=== PATIENT | female | born 1950 | race Caucasian/White ===

== ENCOUNTER → 2017-01-25 | Outpatient (CLI) | payer MEDICARE ==
[~2017-01-25] MED LIST: ACTOS30 MG PO; ASPIR-LOW81 MG PO; CYMBALTA 60MG60 MG PO; DOCUSATE SODIU100 MG PO; FORTAMET500 MG PO; HCTZ 25MG25 MG PO; LISINOPRIL20 MG PO; MVI; TRAZODO50 MG PO; TYLENOL 500MG500 MG PO; VITAMIN C500 MG PO
== END ==
LOC: COL.RAD 09:19
DX: N18.9 Chronic kidney disease, unspecified (principal); Z96.0 Presence of urogenital implants

== ENCOUNTER → 2017-04-20 | Outpatient (CLI) | payer MEDICARE | LOC: WCC 04-19 09:09 | DX: L97.529 Non-pressure chronic ulcer of other part of left foot with unspecified severity (principal); Z89.412 Acquired absence of left great toe | CPT/HCPCS: 13919; G0463 ==

== ENCOUNTER → 2017-04-26 | Outpatient (CLI) | payer MEDICARE | LOC: WCC 09:44 | DX: E11.621 Type 2 diabetes mellitus with foot ulcer (principal); L97.524 Non-pressure chronic ulcer of other part of left foot with necrosis of bone | CPT/HCPCS: 27517; A6207 ==

== ENCOUNTER 2017-05-18 09:16 | Day surgery (SDC) | payer MEDICARE ==
[~2017-05-18] VITALS: Ht 160 cm; Wt 86.4 kg
[~2017-05-18 09:16] MED LIST changes: -FORTAMET500 MG PO; +GLUCOPHAGE1000 MG PO; -LISINOPRIL20 MG PO; +PRINIVIL5 MG PO
[2017-05-18] MEDS ORDERED: TRADJENTA5 MG PO (10:09)
[2017-05-18] MEDS ORDERED: NORVASC 10MG10 MG PO (10:11)
[2017-05-18] MEDS ORDERED: ZOLOFT 50MG50 MG PO (10:11)
[2017-05-18] MEDS ORDERED: PRAVACHOL 20MG20 MG PO (10:13)
[2017-05-18] MEDS ORDERED: LEVEMIR FLEX100 U/ML SQ (10:14)
[2017-05-18] MEDS ORDERED: MULTIVITAMIN FO1 CAP PO (10:16)
[2017-05-18 11:03] VITALS: BP 136/70; PULSE 74; TEMP 97.5
[2017-05-18 12:55] VITALS: BP 130/71; PULSE 81; TEMP 97.4
[2017-05-18 13:10] VITALS: BP 145/77; PULSE 79
[2017-05-18 13:25] VITALS: BP 159/81; PULSE 84
[2017-05-18 13:40] VITALS: BP 150/65; PULSE 78
[2017-05-18 13:55] VITALS: BP 147/72; PULSE 80
== END 2017-05-18 14:15 | disposition home or self-care (01) ==
LOC: SDCO 09:16
DX: M20.42 Other hammer toe(s) (acquired), left foot (principal); E11.621 Type 2 diabetes mellitus with foot ulcer; L97.529 Non-pressure chronic ulcer of other part of left foot with unspecified severity; M19.90 Unspecified osteoarthritis, unspecified site; F32.9 Major depressive disorder, single episode, unspecified; Z87.891 Personal history of nicotine dependence; Z79.84 Long term (current) use of oral hypoglycemic drugs; I10 Essential (primary) hypertension
CPT/HCPCS: J0690; J2250; J2405; J2704; J7030

== ENCOUNTER 2022-02-19 14:15 | Outpatient (RCR) | payer MEDICARE, MEDICAID ==
[~2022-02-19 14:15] MED LIST changes: +LEVEMIR FLEX100 U/ML SQ; +MULTIVITAMIN FO1 CAP PO; +NORVASC 10MG10 MG PO; +PRAVACHOL 20MG20 MG PO; +TRADJENTA5 MG PO; +ZOLOFT 50MG50 MG PO
== END 2022-03-01 | disposition home or self-care (01) ==
LOC: WSOT
DX: R20.0 Anesthesia of skin (principal)

== ENCOUNTER 2022-03-27 10:30 | Outpatient (RCR) | payer MEDICARE, MEDICAID | END 2022-04-01 | disposition home or self-care (01) | LOC: WSPT | DX: R20.0 Anesthesia of skin (principal); E11.9 Type 2 diabetes mellitus without complications ==

== ENCOUNTER → 2022-04-01 | Outpatient (CLI) | payer MEDICARE | LOC: MC.RAD 13:45 | DX: Z12.31 Encounter for screening mammogram for malignant neoplasm of breast (principal) ==

== ENCOUNTER 2022-04-30 13:18 | Emergency (ER) | payer MEDICARE, MEDICAID ==
[~2022-04-30] VITALS: Ht 154.9 cm; Wt 83.2 kg
[2022-04-30 14:36] LABS: BASO % 0.3 % (0.0-2.0); EOS # 0.1 K/mm3 (0.0-0.7); EOS % 1.2 % (0.0-4.0); GRAN # 9.7 K/mm3 (1.4-6.5); GRAN % 81.8 % (42.2-75.2); HEMOGLOBIN 10.5 g/dl (12.5-16.0); LYMPH % 8.5 % (20.0-51.0); MEAN CELL VOLUME 82 fl (80.0-100.0); MEAN CORPUSCULAR HEMOGLOBIN 27 pg (27-31); MEAN CORPUSCULAR HGB CONC 33 g/dl (33.0-37.0); MEAN PLATELET VOLUME 9.4 fl (7.4-10.4); MONO # 0.9 K/mm3 (0.1-0.6); MONO % 7.6 % (1.7-9.3); PLATELET COUNT 282 K/mm3 (130-400); RED BLOOD COUNT 3.85 M/mm3 (4.10-5.30); REDCELL DISTRIBUTION WIDTH-CV 13.7 % (11.5-14.5)
[2022-04-30 14:38] LABS: HEMATOCRIT 31.6 % (37.0-47.0)
[2022-04-30 14:55] LABS: ALBUMIN 2.8 gm/dL (3.4-4.8); C-REACTIVE PROTEIN 10.27 mg/dL (0.00-0.50); CALCIUM 8.8 mg/dL (8.4-10.2); CREATININE, serum 1.27 mg/dL (0.57-1.11); PHOSPHOROUS 4.3 mg/dL (2.3-4.7); POTASSIUM 4.2 mmol/L (3.5-4.5)
[2022-04-30 15:16] LABS: ERYTHROCYTE SEDIMENTATION RATE 74 mm/hr (0-30)
[2022-04-30] MEDS ORDERED: BACTRIM DS 8001 TAB PO (15:52)
[2022-04-30 16:15] VITALS: BP 125/69; PULSE 79; TEMP 98.9
== END 2022-04-30 16:27 | disposition home or self-care (01) ==
LOC: COL.ER 13:18
PROVIDERS: Emergency Medicine
DX: E11.69 Type 2 diabetes mellitus with other specified complication (principal); E11.52 Type 2 diabetes mellitus with diabetic peripheral angiopathy with gangrene; L08.9 Local infection of the skin and subcutaneous tissue, unspecified; I96 Gangrene, not elsewhere classified

== ENCOUNTER 2022-05-20 11:54 | Inpatient (IN) | payer MEDICARE, MEDICAID ==
[~2022-05-20] VITALS: Ht 154.9 cm; Wt 181.0 kg
[~2022-05-20 11:54] MED LIST changes: +BACTRIM DS 8001 TAB PO
[2022-05-26] VITALS (10 sets, daily range): BP systolic 116–158; BP diastolic 48–86; PULSE 72–92; TEMP 97–98.4
[2022-05-26] MEDS ORDERED: ASPIRIN 81M81 MG/TA2 PO (06:53)
[2022-05-26] MEDS ORDERED: PRINIVIL5 MG PO (06:54)
[2022-05-26] MEDS ORDERED: HCTZ 25MG TAB25 MG PO (06:54)
[2022-05-26] MEDS ORDERED: MULTIVITAMIN FO1 CAP PO (06:56)
[2022-05-26] MEDS ORDERED: PRAVACHOL 20MG20 MG PO (06:57)
[2022-05-26] MEDS ORDERED: ZOLOFT 50MG50 MG PO (06:58)
[2022-05-26] MEDS ORDERED: NORVASC 10MG10 MG PO (06:58)
[2022-05-26] MEDS ORDERED: TRADJENTA5 MG PO (06:59)
[2022-05-26] MEDS ORDERED: GLUCOPHAGE1000 MG PO (06:59)
[2022-05-26] MEDS ORDERED: LEVEMIR FLEX100 U/ML (07:01)
--- NOTE | 2022-05-26 07:34 | NUR ---
0734 5 UNITS REGULAR INSULIN ORDERED BY J[employer] FIXTURE BUILDER. TAKEN TO OR BY Zain UMANZOR RN.
--- NOTE | 2022-05-26 10:20 | NUR ---
1020 ORDER RECEIVED FROM Barbara ORANTES PER KIMBERLY TO DISCONTINUE PO BACTRIM
--- NOTE | 2022-05-26 10:49 | NUR ---
PT TO ROOM 332 PER BED WITH REPORT FROM VEENA [address] SUPERVISOR !@[email or web address]. PT IS DROWSEY BUT AROUSES TO VERBAL. LUNGS CTA, BOWEL SOUNDS PRESENT. IMMOBILIZER INPLACE TO RIGHT LOWER EXT S/P BKA BY DR. HICKMAN THIS AM. IV TO RFA, WATER PROVIDED PER PT REQUEST. CONSULTED HOSPITALIST FOR MEDICAL MANAGEMENT.
[2022-05-26 16:18] LABS: MEAN CELL VOLUME 79 fl (80.0-100.0); MEAN CORPUSCULAR HGB CONC 32 g/dl (33.0-37.0); MEAN PLATELET VOLUME 8.8 fl (7.4-10.4); PLATELET COUNT 383 K/mm3 (130-400); RED BLOOD COUNT 3.31 M/mm3 (4.10-5.30); REDCELL DISTRIBUTION WIDTH-CV 14.9 % (11.5-14.5)
[2022-05-26 16:21] LABS: HEMATOCRIT 26.2 % (37.0-47.0); HEMOGLOBIN 8.5 g/dl (12.5-16.0); MEAN CORPUSCULAR HEMOGLOBIN 26 pg (27-31)
[2022-05-26 16:40] LABS: CALCIUM 8.2 mg/dL (8.4-10.2); CREATININE, serum 1.07 mg/dL (0.57-1.11); POTASSIUM 4.9 mmol/L (3.5-4.5)
[2022-05-26 16:51] LABS: ANISOCYTOSIS 1+; BAND 1 % (0-10); LYMPHOCYTE 3 % (20.0-51.0); PLATELET ESTIMATE NORMAL (NORMAL)
[2022-05-26 16:52] LABS: MICROCYTOSIS 1+
[2022-05-26 16:53] LABS: NEUTROPHILS 96 % (42.0-75.2)
[2022-05-27] VITALS (7 sets, daily range): BP systolic 103–130; BP diastolic 42–63; PULSE 67–85; TEMP 97.4–98.2
[2022-05-27 06:52] LABS: BASO % 0.3 % (0.0-2.0); EOS % 0.2 % (0.0-4.0); GRAN # 9.1 K/mm3 (1.4-6.5); GRAN % 78.4 % (42.2-75.2); LYMPH # 1.5 K/mm3 (1.2-3.4); LYMPH % 13.4 % (20.0-51.0); MEAN CELL VOLUME 80 fl (80.0-100.0); MEAN CORPUSCULAR HGB CONC 32 g/dl (33.0-37.0); MEAN PLATELET VOLUME 8.8 fl (7.4-10.4); MONO # 0.8 K/mm3 (0.1-0.6); MONO % 6.9 % (1.7-9.3); PLATELET COUNT 414 K/mm3 (130-400); RED BLOOD COUNT 3.15 M/mm3 (4.10-5.30); REDCELL DISTRIBUTION WIDTH-CV 14.7 % (11.5-14.5)
[2022-05-27 07:07] LABS: HEMATOCRIT 25.3 % (37.0-47.0); MEAN CORPUSCULAR HEMOGLOBIN 25 pg (27-31)
[2022-05-27 07:22] LABS: CALCIUM 7.6 mg/dL (8.4-10.2); CREATININE, serum 0.86 mg/dL (0.57-1.11); POTASSIUM 3.8 mmol/L (3.5-4.5)
--- NOTE | 2022-05-27 08:45 | NUR ---
Pt doing well this morning, some pain complaints, but pt states isn't too bad. Pt is aware that therapy will be working with her today on mobility. JILLIAN SOMMERS is CDI with knee immobilizer in place. Elsy removed first thing this am and informed pt that we will be assisting her to the commode to use the restroom. Pt reports that her tailbone is bothering her, PCT did place avelyn dressing on. Will assess after she is done eating breakfast.
--- NOTE | 2022-05-27 10:44 | NUR ---
Pt has not been up yet, continue to wait on therapy. Therapy called at this time for assistance
--- NOTE | 2022-05-27 11:33 | NUR ---
Initial visit; Megan and had a wonderful visit about her family her jacinto and her thoughts, feelings and issues. Frame Bander listened and later returned with a Daily Prayer Book in large print. Frame Bander will follow up.
--- NOTE | 2022-05-27 14:48 | NUR ---
MATT met with the patient to discuss discharge plan. The patient lives alone in [place] in a handicap accessible apartment. She reports independence with ADLs before the BKA and has a cane and rollator. She states that she used to drive before things happened with her leg, but now she is utilizing medical transport through her Medicaid to go to doctors appointments. The patient's primary care provider is Tammy Hodgson APRN and she receives her medications from [facility]. The patient does not have a DPOA-HC in EMR, but she was interested in completing one while here. MATT provided the form. The patient verbalized that she wants to designate her daugher, Loli Foss (ph#[phone]), and then her sister, Ibeth Bob (ph#[phone]), as the alternate. MATT and Skyla RFIAS, witnessed the patient's signature. MATT provided the patient with the original and some copies. MATT placed a copy in the patient's chart. Loli lives in [place] and Ibeth lives in [place]. The patient states that her support in [place] is a neighbor. She states that she is private person. The patient had a BKA yesterday. MATT discussed post-acute rehab upon discharge and provided her with Medicare.gov's list of SNFs in the [place] area. The patient chose [facility]) [facility]) [facility]. MATT consulted [facility] Director. MATT contacted and faxed a referral to Santi at [facility]. Awaiting screens. MATT contacted the patient's daughter, Loli, to review the above. Ibeth is in agreement to rehab upon discharge. *Discharge plan: post-acute rehab. Referrals out. Awaiting acceptance*
--- NOTE | 2022-05-27 15:00 | NUR ---
Pt continues to sit up in the chair. She states that she is more comfortable in the chair vs bed. Pt does have a coupld open areas on her bottom and reports that it is painful. Pt sitting on a pillow at this time. Pt is tearful, pt states she just needed to cry. PRN pain medication seems to be working for her. No other needs, will continue to monitor
[2022-05-28 04:19] VITALS: BP 123/52; PULSE 71; TEMP 98
--- NOTE | 2022-05-28 06:04 | NUR ---
pt requested norco x1 @ hs, SSI given for BGM 202. RLE elevated on pillow with immobilizer on, refused ice pack. purewick used during the noc, per pt's request.
[2022-05-28] MEDS ORDERED: ULTRAM 50MG TAB50 MG PO (06:06)
[2022-05-28] MEDS ORDERED: NORCO 325 MG-7.1 TAB PO (06:06)
[2022-05-28 06:29] LABS: BASO # 0.1 K/mm3 (0.0-0.2); BASO % 0.6 % (0.0-2.0); EOS # 0.1 K/mm3 (0.0-0.7); EOS % 0.9 % (0.0-4.0); GRAN # 5.6 K/mm3 (1.4-6.5); GRAN % 70.7 % (42.2-75.2); LYMPH # 1.5 K/mm3 (1.2-3.4); LYMPH % 18.9 % (20.0-51.0); MEAN CELL VOLUME 79 fl (80.0-100.0); MEAN CORPUSCULAR HGB CONC 32 g/dl (33.0-37.0); MEAN PLATELET VOLUME 8.8 fl (7.4-10.4); MONO # 0.6 K/mm3 (0.1-0.6); MONO % 7.9 % (1.7-9.3); PLATELET COUNT 417 K/mm3 (130-400); RED BLOOD COUNT 3.26 M/mm3 (4.10-5.30); REDCELL DISTRIBUTION WIDTH-CV 14.8 % (11.5-14.5)
[2022-05-28 06:34] LABS: HEMATOCRIT 25.7 % (37.0-47.0); HEMOGLOBIN 8.2 g/dl (12.5-16.0); MEAN CORPUSCULAR HEMOGLOBIN 25 pg (27-31)
[2022-05-28 06:52] LABS: CALCIUM 7.7 mg/dL (8.4-10.2); CREATININE, serum 0.91 mg/dL (0.57-1.11); POTASSIUM 4.3 mmol/L (3.5-4.5)
--- NOTE | 2022-05-28 07:05 | NUR ---
Pt blood sugar 65. Pt already had some orange juice. Will recheck prior to giving glucose tabs. Pt verbalizes that she feels fine. Elsy removed and again re-educated pt that she will need to be getting up to use the commode when she has to go to the bathroom. Pt verbalized understanding. No pain complaints at this time, breakfast is ordered
--- NOTE | 2022-05-28 08:19 | NUR ---
aSnti, at [facility], reports that they have declined the patient.
[2022-05-28 08:22] VITALS: BP 131/57; PULSE 81; TEMP 97.7
--- NOTE | 2022-05-28 08:45 | NUR ---
Pt assisted up to the commode. She did well pivoting to the commode, but was then a total lift getting her from the commode to the chair. Pt not able to bear full weight on to her left leg. Pt continues to have avalyn dressing to her coccyx.
[2022-05-28 11:11] VITALS: BP 121/50; PULSE 79; TEMP 97.6
--- NOTE | 2022-05-28 15:07 | NUR ---
IV removed, tip intact. Patients belongings and the patient moved to room 340. No further needs expressed.
--- NOTE | 2022-05-28 15:56 | NUR ---
The patient was accepted to [facility]. The patient discharged today, 05/28, to [facility]. SW attempted to contact and update the patient's daughter, Loli. SW left her a voicemail. No additional needs at this time.
--- NOTE | 2022-05-28 16:05 | NUR ---
Krissy, at [facility], states that they have COVID in their building right now and they do not feel like they can manage her wounds at this time. They are declining the patient.
== END 2022-05-28 15:30 | DRG 240 ==
LOC: INPTSU 05-26 05:45 → SURG 05-26 07:15
PROVIDERS: Physician Assistant; ADMIT Orthopaedic Surgery
PROC: 0Y6H0Z1 Detachment at Right Lower Leg, High, Open Approach (ICD-10-PCS; principal; 2022-05-26 07:15)
DX: E11.52 Type 2 diabetes mellitus with diabetic peripheral angiopathy with gangrene (principal); E87.1 Hypo-osmolality and hyponatremia; I96 Gangrene, not elsewhere classified; E11.621 Type 2 diabetes mellitus with foot ulcer; E11.40 Type 2 diabetes mellitus with diabetic neuropathy, unspecified; I10 Essential (primary) hypertension; F32.A Depression, unspecified; E78.5 Hyperlipidemia, unspecified; Z79.82 Long term (current) use of aspirin; Z79.4 Long term (current) use of insulin
CPT/HCPCS: OP; A9284; J0690; J1100; J1170; J1815; J2250; J2704; J2795; J3010; J7120; L1830

== ENCOUNTER 2022-10-14 09:55 | Outpatient (RCR) | payer MEDICARE, MEDICAID ==
[~2022-10-14 09:55] MED LIST changes: +ASPIRIN 32325 MG/TAB PO; +ASPIRIN 81M81 MG/TA2 PO; +DITROPAN XL 5MG5 M1 PO; +GLUCOSE TEST ST1 DEV MC; +HCTZ 25MG TAB25 MG PO; +MELATIN 3 MG-11 TAB PO; +NEURONTIN100 MG/CAP PO; +NORCO 325 MG-7.1 TAB PO; +ULTRAM 50MG TAB50 MG PO
== END 2022-10-30 | disposition home or self-care (01) ==
LOC: WSOT
DX: M19.041 Primary osteoarthritis, right hand (principal); M19.042 Primary osteoarthritis, left hand

== ENCOUNTER → 2022-10-30 | Outpatient (RCR) | payer MEDICARE, MEDICAID | END | disposition home or self-care (01) | LOC: WSPT | DX: R06.89 Other abnormalities of breathing (principal); Z89.511 Acquired absence of right leg below knee ==

== ENCOUNTER 2022-11-23 10:15 | Outpatient (RCR) | payer MEDICARE, MEDICAID | END 2022-11-29 | disposition home or self-care (01) | LOC: WSOT | DX: M19.042 Primary osteoarthritis, left hand (principal); M19.041 Primary osteoarthritis, right hand ==

== ENCOUNTER 2022-11-23 11:00 | Outpatient (RCR) | payer MEDICARE, MEDICAID | END 2022-11-29 | disposition home or self-care (01) | LOC: WSPT | DX: Z89.511 Acquired absence of right leg below knee (principal); R09.89 Other specified symptoms and signs involving the circulatory and respiratory systems ==

== ENCOUNTER 2023-04-16 10:14 | Outpatient (RCR) | payer MEDICARE, MEDICAID ==
[~2023-04-16 10:14] MED LIST changes: +NORCO 325 MG-51 TAB PO
== END 2023-05-01 | disposition home or self-care (01) ==
LOC: WSPT → WSOT 04-22 11:00
DX: Z91.81 History of falling (principal); D46.9 Myelodysplastic syndrome, unspecified; W19.XXXA Unspecified fall, initial encounter; R53.83 Other fatigue

== ENCOUNTER → 2023-07-01 | Outpatient (RCR) | payer MEDICARE, MEDICAID | END | disposition home or self-care (01) | LOC: WSPT → WSOT 06-15 10:30 → WSPT 06-17 10:30 → WSOT 06-22 10:30 → WSPT 10:30 | DX: Z91.81 History of falling (principal); W19.XXXD Unspecified fall, subsequent encounter ==

== ENCOUNTER 2023-07-15 10:30 | Outpatient (RCR) | payer MEDICARE, MEDICAID | END 2023-08-01 | disposition home or self-care (01) | LOC: WSPT | DX: Z91.81 History of falling (principal); W19.XXXA Unspecified fall, initial encounter ==